=== PATIENT | female | born 1980 | race African-American/Black ===

== ENCOUNTER 2020-10-19 21:11 | Emergency (ER) | payer BC, MEDICAID ==
[2020-10-19] MEDS ORDERED: Pantoprazole 40 MG Tab.CR PO ONE (21:26)
[2020-10-19] MEDS ORDERED: GI Cocktail Oral Solution 30 ML PO ONE (21:26)
--- NOTE | 2020-10-19 22:00 | EDM.PDOC ---
ED HPI GENERAL MEDICAL PROBLEM - General Chief Complaint: Abdominal Pain Stated Complaint: STOMACH PAIN Time Seen by Provider: 10/19/20 21:12 Source of Information: Reports: Patient History Limitations: Reports: No Limitations - History of Present Illness INITIAL COMMENTS - FREE TEXT/NARRATIVE: Aranza is a 39 year old female who presents to ER with midepigastric pain for the last 2 days. States was seen for this prior to this and has been given a GI cocktail which helps for a short period of time. Not burning more intensely. Has tried pepto bismal and mylanta without relief. Does take iron at times and thought it was possibly what had caused this discomfort in the past but she has not taken the iron as of late. Denies constipation at present, no blood in her stools. Did eat evelyn chicken yesterday which is somewhat spicy. In the past, has also taken omeprazole but not currently on this. Denies any chest discomfort, shortness of breath, nausea or vomiting. History of PUD, lap randy. Onset: Gradual Duration: Day(s):, Getting Worse Location: Reports: Abdomen Quality: Reports: Burning Severity: Severe Improves with: Reports: None Worsens with: Reports: Eating Associated Symptoms: Denies: Confusion, Chest Pain, Cough, Fever/Chills, Loss of Appetite, Nausea/Vomiting, Shortness of Breath Treatments VOCAL ARTIST: Reports: Other Medication(s) Other Treatments VOCAL ARTIST: mylanta, pepto bismal Past Medical History Gastrointestinal History: Reports: PUD - Past Surgical History GI Surgical History: Reports: Cholecystectomy Social & Family History - Tobacco Use Tobacco Use Status *Q: Never Tobacco User ED ROS GENERAL - Review of Systems Review Of Systems: See Below Constitutional: Denies: Fever, Chills, Malaise, Weakness, Fatigue, Decreased Appetite HEENT: Denies: Ear Pain, Rhinitis, Sinus Problem, Throat Pain, Vertigo Respiratory: Denies: Shortness of Breath, Cough Cardiovascular: Denies: Chest Pain, Edema, Lightheadedness Endocrine: Denies: Fatigue GI/Abdominal: Reports: Abdominal Pain, Nausea. Denies: Black Stool, Bloody Stool, Constipation, Diarrhea, Vomiting : Reports: No Symptoms Musculoskeletal: Reports: No Symptoms Skin: Reports: No Symptoms Neurological: Reports: No Symptoms Psychiatric: Reports: No Symptoms ED EXAM, GI/ABD - Physical Exam Exam: See Below Exam Limited By: No Limitations General Appearance: Alert, WD/WN, No Apparent Distress Ears: Normal External Exam, Normal TMs Nose: Normal Inspection, Normal Mucosa, No Blood Throat/Mouth: Normal Inspection, Normal Oropharynx Head: Normocephalic Neck: Normal Inspection, Supple, Non-Tender Respiratory/Chest: No Respiratory Distress, Lungs Clear, Normal Breath Sounds Cardiovascular: Regular Rate, Rhythm GI/Abdominal Exam: Normal Bowel Sounds, Soft, Tender (midepigastric pain) Extremities: Normal Inspection, No Pedal Edema Neurological: Alert, Oriented Skin Exam: Warm, Dry Course - Orders/Labs/Meds Orders: Active Orders 24 hr Category Date Time Status Abdomen 2V AP Flat Upright [CR] Stat Exams 10/19/20 21:25 Ordered Labs: Laboratory Tests 10/19/20 10/19/20 Range/Units 21:37 21:37 WBC 8.6 (4.0-10.0) x10^3/uL RBC 4.05 (4.00-5.50) x10^6/uL Hgb 11.4 L (12.0-16.0) g/dL Hct 34.4 (33.0-47.0) % MCV 84.9 (78.0-93.0) fL MCH 28.1 (26.0-32.0) pg MCHC 33.1 (32.0-36.0) g/dL RDW Coeff of José Antonio 16.5 H (10.0-15.0) % Plt Count 286 (130-400) x10^3/uL Immature Gran % (Auto) 0.10 (0.00-0.43) % Neut % (Auto) 66.3 (50.0-80.0) % Lymph % (Auto) 25.3 (25.0-50.0) % [place] % (Auto) 5.1 (2.0-11.0) % Eos % (Auto) 2.7 (0.0-4.0) % Baso % (Auto) 0.5 (0.2-1.2) % Neut # (Auto) 5.7 (1.8-7.7) x10^3/uL Lymph # (Auto) 2.2 (1.0-4.8) x10^3/uL [place] # (Auto) 0.4 (0.0-0.8) x10^3/uL Eos # (Auto) 0.2 (0.0-0.5) x10^3/uL Baso # (Auto) 0.0 (0.0-0.2) x10^3/uL Immature Gran # (Auto) 0.01 (0.00-0.07) x10^3/uL Sodium 140 (136-145) mmol/L Potassium 4.1 (3.5-5.1) mmol/L Chloride 103 (98-107) mmol/L Carbon Dioxide 26 (21-32) mmol/L Anion Gap 15.1 H (5-15) mmol/L BUN 12 (7-18) mg/dL Creatinine 1.0 (0.55-1.02) mg/dL Est Cr Clr Drug Dosing TNP Estimated GFR (MDRD) > 60 Glucose 90 (70-99) mg/dL Calcium 9.0 (8.5-10.1) mg/dL Corrected Calcium 9.5 (8.5-10.1) mg/dL Total Bilirubin 0.3 (0.2-1.0) mg/dL AST 14 L (15-37) U/L ALT 14 (14-59) U/L Alkaline Phosphatase 55 (46-116) U/L Troponin I High Sens 5 (<=51) ng/L C-Reactive Protein < 0.2 (<=0.9) mg/dL Total Protein 7.3 (6.4-8.2) g/dL Albumin 3.4 (3.4-5.0) g/dL Globulin 3.9 Albumin/Globulin Ratio 0.87 Amylase 106 (25-115) U/L Lipase 154 (73-393) U/L Meds: Medications Discontinued Medications Generic Name Dose Route Start Last Admin Trade Name Freq PRN Reason Stop Dose Admin Al Hydroxide/Mg Hydroxide 30 ml 10/19/20 21:26 10/19/20 21:30 Gi Cocktail Oral Solution 30 Ml PO 10/19/20 21:27 Not Given ONETIME ONE Al Hydroxide/Mg Hydroxide Confirm 10/19/20 22:04 10/19/20 21:55 Gi Cocktail Oral Solution 30 Ml Administered 10/19/20 22:05 30 ml Dose Administration 30 ml .ROUTE .STK-MED ONE Pantoprazole Sodium 40 mg 08/18/21 21:26 Pantoprazole 40 Mg Tab.Cr PO 10/19/20 21:27 ONETIME ONE - Re-Assessments/Exams Free Text/Narrative Re-Assessment/Exam: 10/19/20 22:09 Patient was offered a GI cocktail that had been mixed by the nurse and refused to take it as didn't witness her mixing it. Again offered it and patient allowed to mix self. Does feel it improved the severe burning. Refused IV protonix, states does not believe in IV medications due to her sabianism. 10/19/20 22:15 ADvised that labs are all essentially unremarkable. 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 Will start her on Protonix and Carafate. Needs to follow up with a provider of her choice for recheck. Departure - Departure Time of Disposition: 22:16 Disposition: Home, Self-Care 01 Condition: Good Clinical Impression: Gastritis - Discharge Information *PRESCRIPTION DRUG MONITORING PROGRAM REVIEWED*: No *COPY OF PRESCRIPTION DRUG MONITORING REPORT IN PATIENT BINA: No Instructions: Gastritis, Adult, [id number] Referrals: PCP,Not In Area [Primary Care Provider] - Forms: ED Department Discharge Additional Instructions: 1. Push fluids 2. Protonix 40 mg daily 3. Carafate prior to meals three times per day for 2 weeks 4. Follow up with primary care provider in clinic for recheck in 2 weeks or sooner as needed. - My Orders Last 24 Hours: My Active Orders 10/19/20 21:25 Abdomen 2V AP Flat Upright [CR] Stat - Assessment/Plan Last 24 Hours: My Active Orders 10/19/20 21:25 Abdomen 2V AP Flat Upright [CR] Stat
[2020-10-19] MEDS ORDERED: GI Cocktail Oral Solution 30 ML ONE (22:04)
[2020-10-19 22:07] LABS: CHLORIDE,CL 103 mmol/L (98-107); SODIUM,NA 140 mmol/L (136-145)
[2020-10-19 22:08] LABS: ANION GAP 15.1 mmol/L (5-15)
== END 2020-10-19 22:26 | disposition home or self-care (01) ==
LOC: VM.ED 21:11
DX: K29.70 Gastritis, unspecified, without bleeding (principal); Z90.49 Acquired absence of other specified parts of digestive tract
CPT/HCPCS: 36415; 80053; 82150; 83690; 84484; 85025; 86140; 99283; 99284; A9270-GY